=== PATIENT | female | born 1975 | race Caucasian/White ===

== ENCOUNTER 2016-12-24 12:12 | Emergency (ER) | payer MEDICAID ==
[~2016-12-24] VITALS: Ht 160 cm; Wt 75.5 kg
[~2016-12-24 12:12] MED LIST: CALC600T11 PO; FERR-31 PO; IBUP-1542 PO; METF500T4 PO; PNV1TABL43 PO
[2016-12-24 12:19] VITALS: Ht 160 cm; Wt 75.5 kg
[2016-12-24] MEDS ORDERED: IPRATROPIUM (NEB) 0.5 MG/2.5 ML AMP INH STA (12:34)
[2016-12-24] MEDS ORDERED: ALBUTEROL 0.5% (NEB) 2.5 MG/0.5 ML AMP INH STA (12:34)
--- NOTE | 2016-12-24 12:45 | ERD ---
ER Documentation Chief Complaint Date/Time DATE: 12/24/16 TIME: 12:43 Chief Complaint cold symptoms x 8 days HPI This a 40-year-old female who presents to the emergency department today complaining of cough for the past 8 days. She states the cough is worse at night. She states she think she has had a fever initially. States she has some body aches. Denies any sore throat, chest pain, vomiting or diarrhea. ROS All systems reviewed and are negative except as per history of present illness. Medications Home Meds Active Scripts Benzonatate* (Tessalon Perle*) 100 Mg Capsule, 100 MG PO Q8H Y for COUGH, #30 CAP Prov:JULIETA RENDON PA-C 12/24/16 Albuterol Sulfate* (Proair HFA*) 8.5 Gm Hfa.aer.ad, 2 PUFF INH Q4, #1 INHALER Prov:JULIETA RENDON PA-C 12/24/16 Azithromycin* (Zithromax*) 250 Mg Tablet, 250 MG PO .ZPACK DIRECTED, #6 TAB TAKE 500 MG (2 TABS) THE FIRST DAY THEN 250 MG (1 TAB) DAYS 2-5 Prov:JULIETA RENDON PA-C 12/24/16 Ibuprofen* (Ibuprofen*) 600 Mg Tab, 600 MG PO Q6, #20 0 Refills Prov:ROWENA DUNAWAY MD 03/10/15 Reported Medications Ferrous Sulfate (Iron Supplement) 1 Tab Tablet, 1 TAB PO DAILY 03/09/15 Calcium Carbonate* (Calcium Carbonate*) 600 MG Ca Tab, 600 MG PO DAILY, TAB 03/09/15 Metformin* (Glucophage*) 500 Mg Tab, 500 MG PO WITH MEALS, TAB 02/04/15 Vit/Fe Fumarate/Fa* ( Vitamin Tablet*) 1 Tab Tablet, 1 TAB PO 11/20/13 Allergies Allergies: Coded Allergies: No Known Allergies (Unverified Allergy, Unknown, 02/26/15) PMhx/Soc Medical and Surgical Hx: pt denies Surgical Hx History of Surgery: No Anesthesia Reaction: No Hx Neurological Disorder: No Hx Respiratory Disorders: No Hx Cardiac Disorders: Yes (hyperlipidemia) Hx Psychiatric Problems: No Hx Miscellaneous Medical Probl: No Hx Alcohol Use: No Hx Substance Use: No Hx Tobacco Use: No Smoking Status: Never smoker Physical Exam Vitals Vital Signs Date Time Temp Pulse Resp B/P Pulse Ox O2 Delivery O2 Flow Rate FiO2 12/24/16 12:59 94 26 21 12/24/16 12:19 99.3 97 24 145/67 93 Physical Exam Const: Coughing, no acute distress Head: Atraumatic Eyes: Normal Conjunctiva ENT: Normal External Ears, Nose and Mouth. Neck: Full range of motion..~ No meningismus. Resp: Coarse breath sounds bilaterally in all lung fernandez. Cardio: Regular rate and rhythm, no murmurs Abd: Soft, non tender, non distended. Normal bowel sounds Skin: No petechiae or rashes Neur: Awake and alert Psych: Normal Mood and Affect Results 24 hrs Current Medications Medications (Trade) Dose Ordered Sig/Judy Route PRN Reason Start Time Stop Time Status Last Admin Dose Admin Albuterol (Proventil 0.5% (Neb)) 10 mg ONCE STAT INH 12/24/16 12:34 12/24/16 12:36 DC 12/24/16 12:58 Ipratropium [place] (Atrovent 0.02% (Neb)) 1 mg ONCE STAT INH 12/24/16 12:34 12/24/16 12:36 DC 12/24/16 12:58 DIAGNOSTIC IMAGING REPORT Patient: KEDAR ROUSE : 1975 Age: 40 Sex: F MR #: [id number] DOS: 12/24/16 1234 Ordering MD: JULIETA RENDON PA-C Location: [facility] Room/Bed: PROCEDURE: XR Chest. CLINICAL INDICATION: Fever, cough TECHNIQUE: Single frontal view of the chest was obtained COMPARISON: None FINDINGS: The heart and mediastinum are within normal limits. There are mild patchy bibasilar infiltrates.. There is no pleural effusion or pneumothorax. RPTAT: AA IMPRESSION: Mild patchy bibasilar infiltrates. .Herrera Encinas MD, Date Time Electronically viewed and signed by .Herrera Encinas MD, on 12/24/2016 13: 33 .S/ CC: JULIETA RENDON PA-C Procedures/[facility] This 40-year-old female who presents to the emergency department today complaining of cough and phlegm for the past 8 days. Patient has coarse breath sounds on physical exam. She is afebrile and otherwise well-appearing however her oxygen saturation is 93% respirations are 24. Patient was given a 1 hour continuous breathing treatment here in the emergency department the patient's persistent coughingimproved. Oxygen saturation was maintained at 94-95%. I also obtain a chest x-ray. Chest x-ray shows mild patchy bibasilar infiltrates. Patient was given a prescription for azithromycin to treat the pneumonia. Low suspicion for PE, abscess, pleural effusion, pneumothorax. Patient will begin a prescription for an inhaler as well as Tessalon Perles At this time the patient is stable for discharge and outpatient management. Patient should follow up with their PCP in the next 1-2 days. They may return to the emergency department sooner for any persistent or worsening of symptoms. Patient understood and agreed with the plan. Departure Diagnosis: Primary Impression: Pneumonia Pneumonia type: due to unspecified organism Laterality: bilateral Lung location: unspecified part of lung Qualified Code: J18.9 - Pneumonia of both lungs due to infectious organism, unspecified part of lung Condition: Fair JULIETA RENDON PA-C Dec 24, 2016 12:44
--- NOTE | 2016-12-24 13:33 | RADRPT ---
PROCEDURE: XR Chest. CLINICAL INDICATION: Fever, cough TECHNIQUE: Single frontal view of the chest was obtained COMPARISON: None FINDINGS: The heart and mediastinum are within normal limits. There are mild patchy bibasilar infiltrates.. There is no pleural effusion or pneumothorax. RPTAT: AA IMPRESSION: Mild patchy bibasilar infiltrates. .Herrera Encinas MD, MD Date Time Electronically viewed and signed by .Herrera Encinas MD, MD on 12/24/2016 13:33 .S/
[2016-12-24] MEDS ORDERED: BENZ100C70 PO (13:50)
[2016-12-24] MEDS ORDERED: AZIT250T94 PO (13:50)
[2016-12-24] MEDS ORDERED: ALBU8.5H3 INH (13:50)
[2016-12-24 14:13] VITALS: BP 135/74; PULSE 86; RESP 20; TEMP 98.3
== END 2016-12-24 14:14 | disposition home or self-care (01) ==
LOC: FTE 12:12
DX: J18.9 Pneumonia, unspecified organism (principal); Z79.84 Long term (current) use of oral hypoglycemic drugs
CPT/HCPCS: 71010; 94644; Z7610; 94640